=== PATIENT | male | born 1980 | race Caucasian/White ===

== ENCOUNTER 2019-01-05 07:21 | Observation (INO) | payer OTHER ==
[~2019-01-05 07:21] MED LIST: DESFLURANE 15 MIN; ROCURONIUM 50 MG INJ; SUCCINYLCHOLINE CHLORIDE 100 MG/5 ML SYG IV
[2019-01-05] MEDS ORDERED: CEFAZOLIN 2 GM/50 ML (PMX) 50 ML IVPB (08:00)
[2019-01-05] MEDS: LACTATED RINGER'S 1,000 ML IV* (08:00)
[2019-01-05] MEDS ORDERED: MIDAZOLAM 1 MG/ML 2 ML INJ (10:43)
[2019-01-05] MEDS ORDERED: hydrALAzine 20 MG INJ IV (11:30)
[2019-01-05] MEDS ORDERED: HYDROmorphONE 1 MG/5 ML IV SYRINGE IV (11:30)
[2019-01-05] MEDS ORDERED: MEPERIDINE 25 MG INJ IV (11:30)
[2019-01-05] MEDS ORDERED: LABETALOL HCL 20MG INJ IV (11:30)
[2019-01-05] MEDS ORDERED: LORAZEPAM 2 MG INJ IV (11:30)
[2019-01-05] MEDS ORDERED: CEFAZOLIN 1 GM INJ (11:56)
[2019-01-05] MEDS ORDERED: DEXAMETHASONE 4 MG/ML 5 ML INJ (11:59)
[2019-01-05] MEDS ORDERED: ONDANSETRON 4 MG INJ (11:59)
[2019-01-05] MEDS: POLYMYXIN/BACITRACIN 1L IRRIG (12:20)
[2019-01-05] MEDS: BUPIVACAINE 0.5%/EPI (SDV) 30 ML INJ (12:20)
[2019-01-05] MEDS: THROMBIN 5000 UNIT VIAL ×3 (12:36→14:11)
[2019-01-05] MEDS: HEMOSTATIC MATRIX SYG ZFS ×2 (12:36→14:11)
[2019-01-05] MEDS ORDERED: PHENYLephrine (100 MCG/ML) 10ML SYG (13:00)
[2019-01-05] MEDS: GELATIN SIZE 100 SPONGE (13:56)
[2019-01-05] MEDS ORDERED: FENTAnyl 50 MCG/ML VIAL (14:49)
[2019-01-05] MEDS ORDERED: LABETALOL HCL 20MG INJ (15:39)
[2019-01-05] MEDS ORDERED: THROMBIN 5000 UNIT VIAL (16:24)
[2019-01-05] MEDS ORDERED: PROCHLORPERAZINE 10 MG TAB PO (17:00)
[2019-01-05] MEDS ORDERED: ACETAMINOPHEN 325 MG TAB PO (17:00)
[2019-01-05] MEDS ORDERED: ONDANSETRON 4 MG INJ IV (17:00)
[2019-01-05] MEDS ORDERED: NALOXONE (0.4 MG/ML) INJ IV (17:00)
[2019-01-05] MEDS ORDERED: HYDROCODONE/APAP (5/325) TAB PO (17:00)
[2019-01-05] MEDS ORDERED: CYCLOBENZAPRINE 10 MG TAB PO (17:00)
[2019-01-05] MEDS ORDERED: AL HYDROX/MG HYDROX/SIMETH 30 ML CUP PO (17:00)
[2019-01-05] MEDS ORDERED: HYDROmorphONE 0.5 MG/0.5 ML SYG IV (17:00)
[2019-01-05] MEDS ORDERED: NACL 0.9% 3 ML SYG IV (17:00)
[2019-01-05] MEDS ORDERED: DIPHENHYDRAMINE 50 MG INJ (17:17)
[2019-01-05] MEDS: DIPHENHYDRAMINE 50 MG INJ IV (17:31)
[2019-01-05] MEDS: ONDANSETRON 4 MG INJ IV (17:31)
[2019-01-05] MEDS: CEFAZOLIN 1 GM/50 ML (PMX) 50 ML IVPB (17:47)
[2019-01-05] MEDS: HYDROmorphONE 1 MG/5 ML IV SYRINGE IV ×2 (17:50→18:04)
[2019-01-05] MEDS: LISINOPRIL 10 MG TAB PO (18:00)
[2019-01-05] MEDS: D5-NS + KCL 20 MEQ 1,000 ML IV (20:45)
[2019-01-05] MEDS: HYDROCODONE/APAP (5/325) TAB PO (20:46)
[2019-01-05] MEDS: DULOXETINE 30 MG CAP DR PO (20:46)
[2019-01-06] MEDS: CEFAZOLIN 1 GM/50 ML (PMX) 50 ML IVPB ×3 (00:36→12:33)
[2019-01-06] MEDS: D5-NS + KCL 20 MEQ 1,000 ML IV ×2 (01:30→08:42)
[2019-01-06] MEDS: HYDROCODONE/APAP (5/325) TAB PO ×3 (01:59→11:36)
[2019-01-06 05:32] LABS: HEMATOCRIT 32.6 % (42.0-52.0); HEMOGLOBIN 10.6 g/dl (14.0-18.0)
[2019-01-06 05:39] LABS: ANION GAP 6 (5-13); BLOOD UREA NITROGEN 9 mg/dl (7-20); CALCIUM 8.8 mg/dl (8.4-10.2); CARBON DIOXIDE 26 mmol/L (21-31); CHLORIDE 109 mmol/L (97-110); CREATININE 0.65 mg/dl (0.61-1.24); Estimated GFR > 60 mL/min (>60); GLUCOSE 134 mg/dl (70-220); POTASSIUM 4.2 mmol/L (3.5-5.1); SODIUM 141 mmol/L (135-144)
[2019-01-06] MEDS: DOCUSATE SODIUM 100 MG CAP PO (08:41)
[2019-01-06] MEDS: LISINOPRIL 10 MG TAB PO (08:41)
[2019-01-06] MEDS ORDERED: BALSAM PERU/CASTOR OIL 60 GM TUBE TOP (12:30)
== END 2019-01-06 14:28 | disposition home or self-care (01) ==
LOC: SDS 07:21 → MS1 18:36 → SDS 16:53 → MS1 23:10
DX: M48.061 Spinal stenosis, lumbar region without neurogenic claudication (principal); M51.16 Intervertebral disc disorders with radiculopathy, lumbar region; E66.9 Obesity, unspecified; Z68.30 Body mass index [BMI] 30.0-30.9, adult; I10 Essential (primary) hypertension; F41.9 Anxiety disorder, unspecified
CPT/HCPCS: 63030; 72114; 80048; 85014; 85018; 86850; 86900; 86901; 88304; 97116; 97161